=== PATIENT | female | born 1990 | race Caucasian/White ===

== ENCOUNTER 2018-12-06 08:02 | Inpatient (IN) | payer OTHER, SELFPAY ==
[2018-12-06 08:34] LABS: HCT 39.7 % (36.0-46.0); HGB 14.2 g/dL (12.0-15.5); Mean Corp. HGB Concentration 35.8 g/dL (32.0-36.0); Mean Corpuscular Hemoglobin 33.4 pg (27.0-33.0); Mean Corpuscular Volume 93.4 fL (80-95); Mean Platelet Volume 10.6 fL (8.0-11.0); Platelet Count 186 x1000/uL (130-400); RBC 4.25 m/cumm (4.00-5.20); RBC Distribution Width 13.3 % (11.7-14.6); White Blood Cell Count 14.27 k/cumm (4.4-10.8)
[2018-12-06] MEDS: Normal Saline Flush 10 ML SYR IVP (08:45)
[2018-12-06] MEDS: Lactated Ringers 1,000 ML 1000 ML IV (09:00)
[2018-12-06] MEDS: FentaNYL/ROPIvacaine 2 mcg/ml and 0.1% 200 ML CADD Cassette EP (09:17)
[2018-12-06] MEDS: Lactated Ringers 1,000 ML 120 ML IV (10:05)
== END 2018-12-07 12:40 | disposition home or self-care (01) | DRG 807 ==
PROVIDERS: Admitting Provider Family Medicine; PCP Family Medicine; Visit Provider Family Medicine
DX: O75.81 Maternal exhaustion complicating labor and delivery (principal); Z37.0 Single live birth; O76 Abnormality in fetal heart rate and rhythm complicating labor and delivery; Z3A.39 39 weeks gestation of pregnancy; O32.8XX0 Maternal care for other malpresentation of fetus, not applicable or unspecified; O69.3XX0 Labor and delivery complicated by short cord, not applicable or unspecified; O62.1 Secondary uterine inertia
CPT/HCPCS: 36415; 85027; 86850; 86900; 86901

== ENCOUNTER 2020-05-03 00:53 | Outpatient (CLI) | payer OTHER, SELFPAY ==
--- NOTE | 2020-05-03 | DI.US_ITS ---
EXAM: US OB 1ST TRIMESTER CLINICAL HISTORY: SUPERVISION OF NORMAL ,Z34.81 TECHNIQUE: Ultrasound performed using standard protocol. COMPARISON: No exams were available for comparison FINDINGS: Ob ultrasound was performed utilizing 1st trimester protocol. There is single fetus in a normal appe aring gestational sac, crown-rump length measurements are consistent with a gestational age of 7 week s 2 days and EDC December 18, 2020. heart rate is 135 BPM. There is a presumed corpus luteum cyst of the right ovary measuring 19 millimeters in greatest diamet er. IMPRESSION: DATA REPOSITORY:
== END 2020-05-03 01:13 ==
PROVIDERS: PCP Family Medicine; Visit Provider Family Medicine
DX: Z34.81 Encounter for supervision of other normal pregnancy, first trimester (principal)
CPT/HCPCS: 76801